=== PATIENT | male | born 1955 | race Caucasian/White ===

== ENCOUNTER 2021-04-19 19:59 | Emergency (ER) | payer OTHER ==
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
--- NOTE | 2021-04-19 21:24 | CRLCR ---
For Patients: As a result of the Century Cures Act, medical imaging exams and procedure reports are released immediately into your electronic medical record. You may view this report before your referring provider. If you have questions, please contact your health care provider. Indication: Patient got caught on last stair. Technique: Three views of the left ankle. Comparison: None Findings: Ankle mortise is intact. The talar dome is intact. A plantar calcaneal spur is identified. An enthesophyte is identified at the insertion site of the Achilles tendon on the calcaneus. Calcifications are identified within the plantar fascia. Extensive vascular calcifications are seen. Impression: Comminuted fracture of the distal fibula Dictated by Nidia Butts MD @ 04/19/2021 9:21:41 PM (Electronically Signed)
--- NOTE | 2021-04-19 21:34 | CRLCR ---
For Patients: As a result of the Cures Act, medical imaging exams and procedure reports are released immediately into your electronic medical record. You may view this report before your referring provider. If you have questions, please contact your health care provider. Indication: Fall, pain Technique: Three views of the left knee Comparison: None Findings: There is no evidence of acute fracture or dislocation. There is no appreciable joint effusion. Mild degenerative narrowing and chondrocalcinosis are noted in the femorotibial compartments. The surrounding soft tissues are unremarkable. Impression: No acute abnormality. Mild osteoarthrosis. Dictated by Kelli Roth MD @ 04/19/2021 9:32:31 PM (Electronically Signed)
== END 2021-04-19 22:07 | disposition home or self-care (01) ==
LOC: JP.ED 19:59
DX: S82.822A Torus fracture of lower end of left fibula, initial encounter for closed fracture (principal); Z79.82 Long term (current) use of aspirin; Z88.8 Allergy status to other drugs, medicaments and biological substances; Z88.2 Allergy status to sulfonamides; W10.9XXA Fall (on) (from) unspecified stairs and steps, initial encounter
CPT/HCPCS: 29515; 73562-LT; 73610-LT; 99283-25